=== PATIENT | female | born 1980 | race Caucasian/White ===

== ENCOUNTER 2016-10-04 16:45 | Inpatient (IN) | payer OTHER ==
[~2016-10-04] VITALS: Ht 160 cm; Wt 101.2 kg
[2016-10-04] MEDS ORDERED: MAGNESIUM SULF. PMX 20GM/500ML 500 ML IV ONE (17:34)
[2016-10-04] MEDS ORDERED: MAGNESIUM SULF. PMX 20GM/500ML 500 ML IV SCH (17:55)
[2016-10-04] MEDS ORDERED: CALCIUM GLUCONATE 4.6 MEQ/10 ML IV PRN (18:00)
[2016-10-04] MEDS: LACTATED RINGERS 1,000 ML IV PRN (18:11)
[2016-10-04] MEDS ORDERED: PLEASE ENTER HEIGHT AND WEIGHT MC SCH (18:30)
[2016-10-04] MEDS ORDERED: PLEASE ENTER ALLERGIES MC SCH ×2 (18:30)
[2016-10-04 19:28] LABS: AMNI OBC PASS; AMNISURE POSITIVE (NEGATIVE)
[2016-10-04] MEDS: AMPICILLIN 2 GM in SODIUM CHLORIDE 0.9% 100 ML IV SCH (19:58)
[2016-10-05] MEDS ORDERED: MAGNESIUM SULF. PMX 20GM/500ML 500 ML IV ONE ×2 (00:51→20:39)
[2016-10-05] MEDS ORDERED: DIPHENHYDRAMINE 25 MG CAPSULE ONE (01:36)
[2016-10-05] MEDS: AMPICILLIN 2 GM in SODIUM CHLORIDE 0.9% 100 ML IV SCH ×4 (01:40→20:09)
[2016-10-05] MEDS ORDERED: DIPHENHYDRAMINE 25 MG CAPSULE PO PRN (02:00)
[2016-10-05] MEDS: AZITHROMYCIN 500 MG TABLET PO SCH (09:00)
[2016-10-05] MEDS ORDERED: DOCUSATE 100 MG CAPSULE ONE (09:02)
[2016-10-05] MEDS: DOCUSATE 100 MG CAPSULE PO SCH (09:03)
[2016-10-05] MEDS: LACTATED RINGERS 1,000 ML IV PRN ×2 (09:05→20:09)
[2016-10-05] MEDS ORDERED: MAGNESIUM SULFATE PMX 2GM/50ML 50 ML ONE (10:38)
[2016-10-05] MEDS: MAGNESIUM SULF. PMX 20GM/500ML 500 ML IV SCH ×2 (10:41→20:43)
[2016-10-05] MEDS ORDERED: BETAMETHASONE 6 MG/ML, 5ML IM ONE (14:50)
[2016-10-05] MEDS ORDERED: BETAMETHASONE 6 MG/ML, 5ML IM SCH (15:00)
[2016-10-05] MEDS ORDERED: MAGNESIUM SULF. PMX 20GM/500ML 500 ML IV SCH (17:55)
[2016-10-05] MEDS ORDERED: ZOLPIDEM 10MG TABLET PO PRN (20:00)
[2016-10-05 21:50] VITALS: BP 116/56
[2016-10-06] MEDS: AMPICILLIN 2 GM in SODIUM CHLORIDE 0.9% 100 ML IV SCH ×4 (02:01→19:52)
[2016-10-06] MEDS ORDERED: MAGNESIUM SULF. PMX 20GM/500ML 500 ML IV ONE ×2 (05:56→15:24)
[2016-10-06] MEDS: LACTATED RINGERS 1,000 ML IV PRN ×2 (06:17→18:10)
[2016-10-06] MEDS: MAGNESIUM SULF. PMX 20GM/500ML 500 ML IV SCH ×2 (06:19→15:28)
[2016-10-06] MEDS ORDERED: PREN1TAB60 PO (07:26)
[2016-10-06] MEDS ORDERED: PRENATAL VIT/IRON/FA 1 EACH TABLET ONE (07:47)
[2016-10-06] MEDS ORDERED: DOCUSATE 100 MG CAPSULE ONE (07:47)
[2016-10-06] MEDS: AZITHROMYCIN 500 MG TABLET PO SCH (08:01)
[2016-10-06] MEDS: DOCUSATE 100 MG CAPSULE PO SCH (08:01)
[2016-10-06] MEDS ORDERED: calcium (08:07)
[2016-10-06] MEDS ORDERED: FEXO60TA24 PO (08:07)
[2016-10-06] MEDS ORDERED: FLUT9.9S NAS (08:07)
[2016-10-06] MEDS ORDERED: BISACODYL 5 MG EC TABLET PO PRN (16:30)
[2016-10-07] MEDS ORDERED: MAGNESIUM SULF. PMX 20GM/500ML 500 ML IV ONE (01:44)
[2016-10-07] MEDS: MAGNESIUM SULF. PMX 20GM/500ML 500 ML IV SCH ×3 (01:49→20:00)
[2016-10-07] MEDS: AMPICILLIN 2 GM in SODIUM CHLORIDE 0.9% 100 ML IV SCH ×4 (01:59→20:03)
[2016-10-07] MEDS ORDERED: DOCUSATE 100 MG CAPSULE ONE (08:31)
[2016-10-07] MEDS ORDERED: PRENATAL VIT/IRON/FA 1 EACH TABLET ONE (08:31)
[2016-10-07] MEDS: DOCUSATE 100 MG CAPSULE PO SCH (08:38)
[2016-10-07] MEDS: AZITHROMYCIN 500 MG TABLET PO SCH (08:39)
[2016-10-07] MEDS: PRENATAL VIT/IRON/FA 1 EACH TABLET PO SCH (08:39)
[2016-10-07 08:45] VITALS: BP 126/64
[2016-10-07] MEDS: FEXOFENADINE HOMEMEDPO SCH (09:00)
[2016-10-07 15:51] VITALS: BP 116/57
[2016-10-07 21:43] VITALS: BP 116/83
[2016-10-08] MEDS: AMPICILLIN 2 GM in SODIUM CHLORIDE 0.9% 100 ML IV SCH ×4 (02:06→19:46)
[2016-10-08] MEDS: MAGNESIUM SULF. PMX 20GM/500ML 500 ML IV SCH ×2 (06:00→16:00)
[2016-10-08 07:00] VITALS: BP 123/69
[2016-10-08] MEDS: FEXOFENADINE HOMEMEDPO SCH (09:00)
[2016-10-08] MEDS: PRENATAL VIT/IRON/FA 1 EACH TABLET PO SCH (09:00)
[2016-10-08 17:00] VITALS: BP 123/90
[2016-10-08] MEDS ORDERED: DOCUSATE 100 MG CAPSULE ONE (20:14)
[2016-10-08] MEDS: DOCUSATE 100 MG CAPSULE PO SCH (20:15)
[2016-10-09] MEDS: MAGNESIUM SULF. PMX 20GM/500ML 500 ML IV SCH (02:00)
[2016-10-09] MEDS: AMPICILLIN 2 GM in SODIUM CHLORIDE 0.9% 100 ML IV SCH ×4 (02:01→20:12)
[2016-10-09] MEDS: DOCUSATE 100 MG CAPSULE PO SCH ×3 (07:34→21:00)
[2016-10-09] MEDS: AZITHROMYCIN 500 MG TABLET PO SCH (07:34)
[2016-10-09] MEDS: PRENATAL VIT/IRON/FA 1 EACH TABLET PO SCH ×2 (07:35→09:00)
[2016-10-09] MEDS: FEXOFENADINE HOMEMEDPO SCH (09:00)
[2016-10-09] MEDS ORDERED: DOCUSATE 100 MG CAPSULE ONE (20:19)
[2016-10-10] MEDS: AMPICILLIN 2 GM in SODIUM CHLORIDE 0.9% 100 ML IV SCH ×3 (02:06→14:00)
[2016-10-10] MEDS: DOCUSATE 100 MG CAPSULE PO SCH ×4 (09:00→22:06)
[2016-10-10] MEDS: AZITHROMYCIN 500 MG TABLET PO SCH ×2 (09:00→09:11)
[2016-10-10] MEDS: PRENATAL VIT/IRON/FA 1 EACH TABLET PO SCH ×2 (09:00→09:11)
[2016-10-10] MEDS: FEXOFENADINE HOMEMEDPO SCH (09:00)
[2016-10-10] MEDS ORDERED: PRENATAL VIT/IRON/FA 1 EACH TABLET ONE (09:08)
[2016-10-10 09:29] VITALS: BP 125/79
[2016-10-10 10:25] VITALS: BP 118/67
[2016-10-10] MEDS: AMOXICILLIN 500 MG CAPSULE PO SCH ×2 (14:58→22:06)
[2016-10-10 19:31] VITALS: BP 123/70
[2016-10-11] MEDS: AMOXICILLIN 500 MG CAPSULE PO SCH ×2 (06:15→14:10)
[2016-10-11] MEDS: DOCUSATE 100 MG CAPSULE PO SCH ×3 (08:19→20:52)
[2016-10-11] MEDS: AZITHROMYCIN 500 MG TABLET PO SCH ×2 (08:19→09:00)
[2016-10-11] MEDS: PRENATAL VIT/IRON/FA 1 EACH TABLET PO SCH (09:00)
[2016-10-11] MEDS: FEXOFENADINE HOMEMEDPO SCH (09:00)
[2016-10-12] MEDS: PRENATAL VIT/IRON/FA 1 EACH TABLET PO SCH (09:00)
[2016-10-12] MEDS: FEXOFENADINE HOMEMEDPO SCH (09:00)
[2016-10-12] MEDS: DOCUSATE 100 MG CAPSULE PO SCH ×2 (09:33→21:25)
[2016-10-13 07:35] VITALS: BP 117/66
[2016-10-13] MEDS ORDERED: DOCUSATE 100 MG CAPSULE ONE ×2 (07:49→20:56)
[2016-10-13] MEDS: DOCUSATE 100 MG CAPSULE PO SCH ×2 (07:55→21:09)
[2016-10-13] MEDS: PRENATAL VIT/IRON/FA 1 EACH TABLET PO SCH (07:56)
[2016-10-13] MEDS: FEXOFENADINE HOMEMEDPO SCH (07:57)
[2016-10-14] MEDS ORDERED: PRENATAL VIT/IRON/FA 1 EACH TABLET ONE (08:21)
[2016-10-14] MEDS: PRENATAL VIT/IRON/FA 1 EACH TABLET PO SCH (08:23)
[2016-10-14] MEDS: DOCUSATE 100 MG CAPSULE PO SCH ×2 (08:23→23:36)
[2016-10-14] MEDS: FEXOFENADINE HOMEMEDPO SCH (08:24)
[2016-10-14 08:32] VITALS: BP 127/68
[2016-10-14 19:40] VITALS: BP 127/68
[2016-10-14] MEDS ORDERED: DOCUSATE 100 MG CAPSULE ONE (22:58)
[2016-10-15] MEDS: PRENATAL VIT/IRON/FA 1 EACH TABLET PO SCH (09:00)
[2016-10-15] MEDS: FEXOFENADINE HOMEMEDPO SCH (09:00)
[2016-10-15] MEDS ORDERED: DOCUSATE 100 MG CAPSULE ONE ×2 (09:27→21:23)
[2016-10-15] MEDS: DOCUSATE 100 MG CAPSULE PO SCH ×2 (09:46→21:25)
[2016-10-16] MEDS: FEXOFENADINE HOMEMEDPO SCH (09:00)
[2016-10-16] MEDS ORDERED: PRENATAL VIT/IRON/FA 1 EACH TABLET ONE (10:33)
[2016-10-16] MEDS: DOCUSATE 100 MG CAPSULE PO SCH ×2 (10:37→22:10)
[2016-10-16] MEDS: PRENATAL VIT/IRON/FA 1 EACH TABLET PO SCH (10:38)
[2016-10-16] MEDS ORDERED: DOCUSATE 100 MG CAPSULE ONE (22:09)
[2016-10-17 07:30] VITALS: BP 119/68
[2016-10-17] MEDS: DOCUSATE 100 MG CAPSULE PO SCH ×2 (09:22→21:46)
[2016-10-17] MEDS ORDERED: PRENATAL VIT/IRON/FA 1 EACH TABLET ONE (09:23)
[2016-10-17] MEDS: PRENATAL VIT/IRON/FA 1 EACH TABLET PO SCH (09:23)
[2016-10-17] MEDS ORDERED: DOCUSATE 100 MG CAPSULE ONE (21:44)
[2016-10-17 22:03] VITALS: BP 116/71
[2016-10-18] MEDS: DOCUSATE 100 MG CAPSULE PO SCH ×2 (08:55→20:47)
[2016-10-18] MEDS: PRENATAL VIT/IRON/FA 1 EACH TABLET PO SCH (08:58)
[2016-10-18] MEDS ORDERED: PRENATAL VIT/IRON/FA 1 EACH TABLET ONE (08:58)
[2016-10-18] MEDS: FEXOFENADINE HOMEMEDPO SCH (09:00)
[2016-10-18 17:00] VITALS: BP 131/79
[2016-10-18] MEDS ORDERED: DOCUSATE 100 MG CAPSULE ONE (20:45)
[2016-10-19] MEDS: FEXOFENADINE HOMEMEDPO SCH (09:00)
[2016-10-19] MEDS ORDERED: PRENATAL VIT/IRON/FA 1 EACH TABLET ONE (09:50)
[2016-10-19] MEDS: DOCUSATE 100 MG CAPSULE PO SCH ×2 (09:52→20:01)
[2016-10-19] MEDS: PRENATAL VIT/IRON/FA 1 EACH TABLET PO SCH (09:52)
[2016-10-19] MEDS: FERROUS GLUCONATE 324 MG TABLET PO SCH (11:45)
[2016-10-19] MEDS ORDERED: DOCUSATE 100 MG CAPSULE ONE (19:59)
[2016-10-20] MEDS ORDERED: DOCUSATE 100 MG CAPSULE ONE (08:54)
[2016-10-20] MEDS: DOCUSATE 100 MG CAPSULE PO SCH ×2 (08:56→19:43)
[2016-10-20] MEDS: PRENATAL VIT/IRON/FA 1 EACH TABLET PO SCH (08:56)
[2016-10-20 09:00] VITALS: BP 109/64
[2016-10-20] MEDS: FEXOFENADINE HOMEMEDPO SCH ×2 (09:00→19:44)
[2016-10-20] MEDS: FERROUS GLUCONATE 324 MG TABLET PO SCH (19:43)
[2016-10-21] MEDS: PRENATAL VIT/IRON/FA 1 EACH TABLET PO SCH (09:00)
[2016-10-21] MEDS: FEXOFENADINE HOMEMEDPO SCH (09:00)
[2016-10-21] MEDS: DOCUSATE 100 MG CAPSULE PO SCH ×2 (09:23→20:29)
[2016-10-21] MEDS ORDERED: ACETAMINOPHEN 325 MG TABLET ONE (12:19)
[2016-10-21] MEDS: ACETAMINOPHEN 325 MG TABLET PO PRN (12:20)
[2016-10-21] MEDS: FERROUS GLUCONATE 324 MG TABLET PO SCH (20:29)
[2016-10-22] MEDS: PRENATAL VIT/IRON/FA 1 EACH TABLET PO SCH (09:00)
[2016-10-22] MEDS: FEXOFENADINE HOMEMEDPO SCH (09:00)
[2016-10-22] MEDS ORDERED: DOCUSATE 100 MG CAPSULE ONE (09:04)
[2016-10-22] MEDS: DOCUSATE 100 MG CAPSULE PO SCH (09:05)
[2016-10-22] MEDS: FERROUS GLUCONATE 324 MG TABLET PO SCH (16:35)
[2016-10-22 22:05] VITALS: BP 138/83
[2016-10-23] MEDS: DOCUSATE 100 MG CAPSULE PO SCH (07:42)
[2016-10-23] MEDS: PRENATAL VIT/IRON/FA 1 EACH TABLET PO SCH (09:00)
[2016-10-23] MEDS: FERROUS GLUCONATE 324 MG TABLET PO SCH (18:22)
[2016-10-23 22:01] VITALS: BP 131/78
[2016-10-24] MEDS: DOCUSATE 100 MG CAPSULE PO SCH ×3 (08:43→21:00)
[2016-10-24 09:19] VITALS: BP 133/69
[2016-10-24] MEDS: FERROUS GLUCONATE 324 MG TABLET PO SCH (17:02)
[2016-10-24 20:00] VITALS: BP 118/68
[2016-10-25] MEDS ORDERED: PRENATAL VIT/IRON/FA 1 EACH TABLET ONE (07:38)
[2016-10-25] MEDS: PRENATAL VIT/IRON/FA 1 EACH TABLET PO SCH (07:43)
[2016-10-25] MEDS: DOCUSATE 100 MG CAPSULE PO SCH ×3 (07:43→21:00)
[2016-10-25] MEDS: FERROUS GLUCONATE 324 MG TABLET PO SCH (17:12)
[2016-10-25 19:30] VITALS: BP 123/69
[2016-10-26] MEDS: DOCUSATE 100 MG CAPSULE PO SCH ×2 (09:56→21:00)
[2016-10-26] MEDS ORDERED: ZOLPIDEM 5MG TABLET ONE (22:47)
[2016-10-27] MEDS: DOCUSATE 100 MG CAPSULE PO SCH (09:30)
[2016-10-27] MEDS ORDERED: DOCUSATE 100 MG CAPSULE ONE (09:32)
[2016-10-27] MEDS: FERROUS GLUCONATE 324 MG TABLET PO SCH ×2 (16:50→18:01)
[2016-10-27 20:00] VITALS: BP 118/65
[2016-10-28] MEDS ORDERED: DOCUSATE 100 MG CAPSULE ONE (09:49)
[2016-10-28] MEDS: PRENATAL VIT/IRON/FA 1 EACH TABLET PO SCH (09:54)
[2016-10-28] MEDS: DOCUSATE 100 MG CAPSULE PO SCH (09:54)
[2016-10-28] MEDS: FEXOFENADINE HOMEMEDPO SCH (09:55)
[2016-10-28] MEDS: FERROUS GLUCONATE 324 MG TABLET PO SCH (17:25)
[2016-10-29] MEDS: FEXOFENADINE HOMEMEDPO SCH (10:00)
[2016-10-29] MEDS: PRENATAL VIT/IRON/FA 1 EACH TABLET PO SCH (10:00)
[2016-10-29] MEDS: DOCUSATE 100 MG CAPSULE PO SCH ×2 (10:00→21:00)
[2016-10-29] MEDS ORDERED: ACETAMINOPHEN 325 MG TABLET ONE (16:20)
[2016-10-29] MEDS: ACETAMINOPHEN 325 MG TABLET PO PRN (16:21)
[2016-10-29 20:01] VITALS: BP 130/70
[2016-10-30] MEDS ORDERED: LACTATED RINGERS 1,000 ML IV SCH (01:06)
[2016-10-30] MEDS ORDERED: D5%-LACTATED RINGERS 1,000 ML IV SCH (01:06)
[2016-10-30] MEDS ORDERED: AMPICILLIN 2 GM in SODIUM CHLORIDE 0.9% 100 ML IVPB STA (01:06)
[2016-10-30] MEDS ORDERED: OXYTOCIN 30U/ 0.9% NaCL 500ML 500 ML IV ONE (01:06)
[2016-10-30] MEDS ORDERED: OXYTOCIN 30U/ 0.9% NaCL 500ML 500 ML IV PRN (01:06)
[2016-10-30] MEDS ORDERED: FENTANYL PF 100 MCG/2ML IVPush PRN (01:30)
[2016-10-30] MEDS ORDERED: SODIUM CITRATE/CITRIC ACID 30 ML UDC PO PRN (01:30)
[2016-10-30] MEDS ORDERED: FENTANYL PF 100 MCG/2ML IV PRN (01:30)
[2016-10-30] MEDS ORDERED: AMPICILLIN 1 GM in SODIUM CHLORIDE 0.9% 50 ML IVPB SCH (01:30)
[2016-10-30] MEDS ORDERED: METOCLOPRAMIDE 5 MG/ML, 2ML IVPush PRN (01:30)
[2016-10-30] MEDS: DOCUSATE 100 MG CAPSULE PO SCH (09:26)
[2016-10-30] MEDS: PRENATAL VIT/IRON/FA 1 EACH TABLET PO SCH (09:27)
[2016-10-30] MEDS: FEXOFENADINE HOMEMEDPO SCH (09:27)
[2016-10-30] MEDS: FERROUS GLUCONATE 324 MG TABLET PO SCH (17:25)
[2016-10-31] MEDS: DOCUSATE 100 MG CAPSULE PO SCH (08:04)
[2016-10-31] MEDS: PRENATAL VIT/IRON/FA 1 EACH TABLET PO SCH (08:05)
[2016-10-31] MEDS: OXYMETAZOLINE NASAL SPRAY 0.05%, 15ML NAS PRN ×2 (11:42→21:23)
[2016-10-31] MEDS: FERROUS GLUCONATE 324 MG TABLET PO SCH ×2 (16:51→17:00)
[2016-11-01] MEDS: DOCUSATE 100 MG CAPSULE PO SCH ×4 (09:00→21:00)
[2016-11-01] MEDS ORDERED: DOCUSATE 100 MG CAPSULE ONE ×2 (09:47→20:46)
[2016-11-01] MEDS: OXYMETAZOLINE NASAL SPRAY 0.05%, 15ML NAS PRN ×2 (09:53→20:47)
[2016-11-01 10:00] VITALS: BP 138/63
[2016-11-01] MEDS: FERROUS GLUCONATE 324 MG TABLET PO SCH (17:36)
[2016-11-02 07:36] VITALS: BP 122/68
[2016-11-02] MEDS: DOCUSATE 100 MG CAPSULE PO SCH ×4 (08:02→21:07)
[2016-11-02] MEDS: OXYMETAZOLINE NASAL SPRAY 0.05%, 15ML NAS PRN ×2 (09:20→21:07)
[2016-11-02] MEDS ORDERED: NEWBORN KIT ONE (13:24)
[2016-11-02] MEDS: FERROUS GLUCONATE 324 MG TABLET PO SCH (16:44)
[2016-11-03] MEDS: DOCUSATE 100 MG CAPSULE PO SCH (08:36)
[2016-11-03] MEDS: OXYMETAZOLINE NASAL SPRAY 0.05%, 15ML NAS PRN (08:37)
[2016-11-03] MEDS: PRENATAL VIT/IRON/FA 1 EACH TABLET PO SCH (08:37)
[2016-11-03] MEDS: FEXOFENADINE HOMEMEDPO SCH (08:37)
[2016-11-03 08:42] VITALS: BP 126/83
[2016-11-03] MEDS: LACTATED RINGERS 1,000 ML IV SCH ×7 (12:00→18:46)
[2016-11-03] MEDS ORDERED: AZITHROMYCIN 500 MG in SODIUM CHLORIDE 0.9% 250 ML IV ONE (15:30)
[2016-11-03] MEDS ORDERED: morphine SULFATE/PF 0.5 MG/ML, 10ML ONE (15:55)
[2016-11-03] MEDS ORDERED: OXYTOCIN 30U/ 0.9% NaCL 500ML 500 ML IV SCH (16:01)
[2016-11-03] MEDS ORDERED: LACTATED RINGERS 1,000 ML IV SCH (16:01)
[2016-11-03] MEDS ORDERED: METOCLOPRAMIDE 5 MG/ML, 2ML ONE (16:01)
[2016-11-03] MEDS ORDERED: SODIUM CITRATE/CITRIC ACID 30 ML UDC ONE (16:01)
[2016-11-03] MEDS ORDERED: SODIUM CITRATE/CITRIC ACID 30 ML UDC PO ONE (16:30)
[2016-11-03] MEDS ORDERED: LACTATED RINGERS 1,000 ML IVBOLUS ONE ×2 (16:30→18:30)
[2016-11-03] MEDS ORDERED: METOCLOPRAMIDE 5 MG/ML, 2ML IVPush ONE (16:30)
[2016-11-03] MEDS ORDERED: MISOPROSTOL 200 MCG TABLET ONE (16:33)
[2016-11-03] MEDS ORDERED: OXYTOCIN 30U/ 0.9% NaCL 500ML 500 ML ONE (16:33)
[2016-11-03] MEDS ORDERED: SUCCINYLCHOLINE 20 MG/ML, 10ML ONE (16:36)
[2016-11-03] MEDS ORDERED: METHYLERGONOVINE 0.2 MG/ML IM ONE (16:36)
[2016-11-03] MEDS ORDERED: KETOROLAC 30 MG/1 ML ONE (16:36)
[2016-11-03] MEDS ORDERED: PROPOFOL 10 MG/ML, 20ML ONE (16:36)
[2016-11-03] MEDS ORDERED: FENTANYL PF 250 MCG/5ML ONE (17:14)
[2016-11-03] MEDS ORDERED: HYDROmorphone 2 MG/ML, 1ML ONE (17:48)
[2016-11-03] MEDS: OXYTOCIN 30U/ 0.9% NaCL 500ML 500 ML IV SCH (18:31)
[2016-11-03] MEDS ORDERED: METHYLERGONOVINE 0.2 MG/ML IM PRN (19:00)
[2016-11-03] MEDS ORDERED: morphine SULFATE 10 MG/ML, 1ML IVPush PRN (19:00)
[2016-11-03] MEDS ORDERED: METOCLOPRAMIDE 5 MG/ML, 2ML IV PRN (19:00)
[2016-11-03] MEDS ORDERED: FENTANYL PF 100 MCG/2ML ONE (19:07)
[2016-11-03] MEDS ORDERED: OXYcodone 5 MG/5 ML ORAL.SOL UDC ONE (19:08)
[2016-11-03] MEDS ORDERED: FENTANYL PF 100 MCG/2ML IV PRN (19:15)
[2016-11-03 21:00] VITALS: BP 120/78
[2016-11-03 21:45] VITALS: BP 125/79
[2016-11-03] MEDS ORDERED: MEPERIDINE/PF 100 MG/ML ONE (22:06)
[2016-11-03] MEDS: MEPERIDINE/PF 25MG/0.5ML IM PRN (22:11)
[2016-11-03 22:15] VITALS: BP 114/77
[2016-11-04] VITALS: BP 125/80
[2016-11-04] MEDS: LACTATED RINGERS 1,000 ML IV SCH ×5 (01:20→08:00)
[2016-11-04] MEDS ORDERED: MEPERIDINE/PF 100 MG/ML ONE (02:09)
[2016-11-04] MEDS: MEPERIDINE/PF 25MG/0.5ML IM PRN (02:14)
[2016-11-04 04:15] VITALS: BP 102/69
[2016-11-04] MEDS: OXYTOCIN 30U/ 0.9% NaCL 500ML 500 ML IV SCH (04:31)
[2016-11-04] MEDS: OXYcodone/APAP 10/325MG TABLET PO PRN ×3 (07:56→20:35)
[2016-11-04] MEDS: DOCUSATE 100 MG CAPSULE PO SCH ×3 (07:56→20:35)
[2016-11-04] MEDS: PRENATAL VIT/IRON/FA 1 EACH TABLET PO SCH (07:57)
[2016-11-04 08:41] VITALS: BP 113/79
[2016-11-04] MEDS: FEXOFENADINE HOMEMEDPO SCH (09:00)
[2016-11-04] MEDS: IBUPROFEN 600 MG TABLET PO PRN ×2 (16:23→23:45)
[2016-11-04] MEDS: FERROUS GLUCONATE 324 MG TABLET PO SCH ×2 (16:25→17:00)
[2016-11-04 20:00] VITALS: BP 111/64
[2016-11-05] MEDS: OXYcodone/APAP 10/325MG TABLET PO PRN ×4 (04:52→23:54)
[2016-11-05] MEDS: IBUPROFEN 600 MG TABLET PO PRN ×3 (06:46→21:50)
[2016-11-05] MEDS ORDERED: OXYcodone/APAP 5/325MG TABLET PO PRN (07:30)
[2016-11-05 07:45] VITALS: BP 115/81
[2016-11-05] MEDS: DOCUSATE 100 MG CAPSULE PO SCH ×2 (08:44→19:48)
[2016-11-05] MEDS: PRENATAL VIT/IRON/FA 1 EACH TABLET PO SCH (08:44)
[2016-11-05] MEDS: FEXOFENADINE HOMEMEDPO SCH (09:00)
[2016-11-05] MEDS: FERROUS GLUCONATE 324 MG TABLET PO SCH (18:08)
[2016-11-05 19:40] VITALS: BP 117/75
[2016-11-06] MEDS: OXYcodone/APAP 10/325MG TABLET PO PRN ×4 (05:05→22:26)
[2016-11-06] MEDS: IBUPROFEN 600 MG TABLET PO PRN ×3 (05:06→19:21)
[2016-11-06 08:01] VITALS: BP 119/75
[2016-11-06] MEDS: FEXOFENADINE HOMEMEDPO SCH (09:00)
[2016-11-06] MEDS: DOCUSATE 100 MG CAPSULE PO SCH ×2 (09:47→19:21)
[2016-11-06] MEDS: PRENATAL VIT/IRON/FA 1 EACH TABLET PO SCH (09:47)
[2016-11-06] MEDS: FERROUS GLUCONATE 324 MG TABLET PO SCH (17:25)
[2016-11-06 19:40] VITALS: BP 132/83
[2016-11-07] MEDS: IBUPROFEN 600 MG TABLET PO PRN ×3 (01:38→17:21)
[2016-11-07] MEDS: OXYcodone/APAP 10/325MG TABLET PO PRN ×3 (02:43→17:21)
[2016-11-07] MEDS: DOCUSATE 100 MG CAPSULE PO SCH (08:15)
[2016-11-07] MEDS: PRENATAL VIT/IRON/FA 1 EACH TABLET PO SCH (08:15)
[2016-11-07 08:30] VITALS: BP 137/86
[2016-11-07] MEDS: FEXOFENADINE HOMEMEDPO SCH (09:00)
[2016-11-07] MEDS ORDERED: OXYC-302 PO (09:50)
[2016-11-07] MEDS ORDERED: IBUP800T PO (09:50)
[2016-11-07] MEDS: FERROUS GLUCONATE 324 MG TABLET PO SCH (17:00)
== END 2016-11-07 18:05 | disposition home or self-care (01) | DRG 765 ==
LOC: LDIP 17:32 → 2NW 11-03 20:30
PROVIDERS: ADMIT Obstetrics & Gynecology Maternal & Fetal Medicine; ATTEND Obstetrics & Gynecology Maternal & Fetal Medicine
PROC: 10D00Z1 Extraction of Products of Conception, Low, Open Approach (ICD-10-PCS; principal; 2016-11-03)
DX: O42.913 Preterm premature rupture of membranes, unspecified as to length of time between rupture and onset of labor, third trimester (principal); O60.14X0 Preterm labor third trimester with preterm delivery third trimester, not applicable or unspecified; O41.03X0 Oligohydramnios, third trimester, not applicable or unspecified; O99.824 Streptococcus B carrier state complicating childbirth; O32.8XX0 Maternal care for other malpresentation of fetus, not applicable or unspecified; Z37.0 Single live birth; Z3A.29 29 weeks gestation of pregnancy; Z90.49 Acquired absence of other specified parts of digestive tract; O09.513 Supervision of elderly primigravida, third trimester; O46.8X3 Other antepartum hemorrhage, third trimester
CPT/HCPCS: 36415; 76805; 82803; 83735; 84112; 85025; 85384; 86850; 86900; 89060; J0290; J0456; J0702; J1170; J1885; J2175; J2274; J2704; J3010; J0330; J2210; J2590; J2765; J3475; J7050; J7120; Q0114; Q0163